=== PATIENT | male | born 1960 | race Caucasian/White ===

== ENCOUNTER 2016-05-24 08:51 | Day surgery (SDC) | payer OTHER ==
[2016-05-24] MEDS ORDERED: ASPIRIN EC 325 MG TAB PO ONE ×2 (08:57→09:12)
[2016-05-24] MEDS ORDERED: FAMOTIDINE 20 MG TAB PO ONE (08:57)
[2016-05-24] MEDS ORDERED: diphenhydrAMINE 25 MG CAP PO ONE ×2 (08:57→09:12)
[2016-05-24] MEDS ORDERED: DIAZEPAM 5 MG TAB PO ONE (08:57)
[2016-05-24] MEDS ORDERED: NS 1,000 ML IV ONE (08:57)
[2016-05-24] MEDS ORDERED: FAMOTIDINE 20 MG TAB ONE (09:12)
[2016-05-24] MEDS ORDERED: DIAZEPAM 5 MG TAB ONE (09:13)
--- NOTE | 2016-05-24 09:15 | CPEKG ---
Heart Rate: 61 RR Interval: 984 P-R Interval: 168 QRSD Interval: 94 QT Interval: 412 QTC Interval: 415 P [place]: 49 QRS [place]: 45 T Wave [place]: 53 EKG Severity - NORMAL ECG - EKG Impression: SINUS RHYTHM Electronically Signed By: Harshil Mckeon 24-May-2016 14:19:59
[2016-05-24] MEDS ORDERED: fentaNYL 100 MCG/2 ML INJ ONE ×2 (09:47→11:08)
[2016-05-24] MEDS ORDERED: LIDOCAINE 1% 30 ML SDV ONE (09:47)
[2016-05-24] MEDS ORDERED: MIDAZOLAM 2 MG/2 ML VIAL ONE ×2 (09:47→11:08)
[2016-05-24] MEDS ORDERED: IOPAMIDOL (ISOVUE-370) 150 ML BTL IV ONE ×2 (09:48→11:06)
[2016-05-24] MEDS ORDERED: VERAPAMIL 5 MG/2 ML VIAL ONE (09:48)
[2016-05-24] MEDS ORDERED: HEPARIN 10,000 UNIT/10 ML MDV ONE (09:48)
[2016-05-24 09:49] LABS: % IMMATURE GRANULYOCYTES 0.3 % (0.0-1.1); ABSOLUTE IMMATURE GRANULOCYTES 0.01 10^3/uL (0.00-0.10); ADD DIFF? NO; ADD MORPH? NO; ADD SCAN? NO; ATYPICAL LYMPHOCYTE FLAG 20 (0-99); FRAGMENT RBC FLAG 0 (0-99); HEMATOCRIT 44.8 % (40.0-51.0); HEMOGLOBIN 15.7 g/dL (13.7-17.5); LEFT SHIFT FLG 0 (0-99); LIPEMIA HEMOLYSIS FLAG 90 (0-99); MEAN CELL HEMOGLOBIN 31.4 pg (27.9-34.1); MEAN CELL VOLUME 89.6 fL (81.5-99.8); MEAN PLATELET VOLUME 9.6 fL (8.7-11.7); PLATELET CLUMPS FLAG 10 (0-99); PLATELET COUNT 192 10^3/uL (150-400); RED CELL DISTRIBUTION WIDTH 12.4 % (11.5-15.2)
[2016-05-24 09:58] LABS: INR 0.99 (0.83-1.16)
[2016-05-24 10:18] LABS: ANION GAP 9 mEq/L (8-16); CALCIUM 9.2 mg/dL (8.5-10.4); CARBON DIOXIDE 23 mEq/l (22-31); CHLORIDE 109 mEq/L (97-110); CHOLESTEROL 117 mg/dL (140-220); CHOLESTEROL/HDL RATIO 2.25 RATIO (1.00-4.97); CREATININE 0.8 mg/dL (0.7-1.3); GLOMERULAR FILTRATION RATE > 60; GLUCOSE 84 mg/dL (70-100); HIGH DENSITY LIPOPROTEIN 52 mg/dL (40-65); LDL/HDL RATIO 0.98 RATIO (1.00-3.64); LOW DENSITY LIPOPROTEIN 51 mg/dL (80-100); MAGNESIUM 1.9 mg/dL (1.6-2.3); NON-HIGH DENSITY LIPOPROTEIN 65 mg/dL (90-129); POTASSIUM 4.6 mEq/L (3.5-5.2); SODIUM 141 mEq/L (134-144); TRIGLYCERIDE 73 mg/dL (40-150); VERY LOW DENSITY LIPOPROTEINS 14 mg/dL (8-25)
--- NOTE | 2016-05-24 11:03 | SUROPNOTE ---
[facility] Operative Report - Surgery Date of Procedure: 05/24/2016 Indication: This patient is a 48 year old man, with known coronary artery disease by calcium score (largely progressive coronary atherosclerosis by calcium score increase from 2010 to 2016), treated hyperlipidemia, and 20 year smoking history. The patient had exertional chest discomfort in 2011, coupled with an abnormal nuclear stress test at that time. He underwent left heart catheterization and coronary angiography in 2011 at [facility], which was normal by his report. He now presents with several weeks of burning chest discomfort with exertion, which has become increasingly frequent. Stress testing demonstrated 2mm of horizontal/upsloping ST depression and non- sustained VT (3 beats and 5 beats) at stress, nuclear perfusion imaging was normal. Left heart catheterization indicated secondary to Greek cardiovascular class III angina and intermediate risk non-invasive testing. Procedures performed: 1. Left heart catheterization with left ventricular and selective coronary angiography. Description of procedure: Description, risks, benefits and alternatives were discussed in detail. Informed consent was obtained. The patient was brought to the catheterization laboratory where a timeout was performed. The right wrist was sterilely prepped and draped. 2% lidocaine utilized for local anesthetic. A 5/6-Botswanan slender hemostatic sheath placed right radial artery utilizing micropuncture technique. Intraarterial verapamil and intravenous heparin was administered. Diagnostic coronary angiography performed with 6-Botswanan, Luisa left-3.5 and Luisa right -4. All catheters passed over a 0.035 guidewire. Pigtail catheter was then utilized for left heart catheterization and left ventricular angiography. A 6- Botswanan multipurpose catheter was utilized for additional coronary angiography and aortography to better assess the presence of the circumflex coronary artery. Arterial sheath was removed and TR band was placed. Venous sheath was removed in the CVC. Findings: 1. Hemodynamics: Aortic pressure 129/79, mean of 103, left ventricular pressure 137/8/22 end-diastolic. There was no significant pull back gradient across the aortic valve. 2. Left ventricle: The left ventricle appears normal in size. Left ventricle is normal shape. Segmental wall motion is normal with an ejection fraction of 63 %. There are no filling defects or significant mitral regurgitation. The aortic root and ascending aorta appears normal, there is no dissection or aneurysm formation. 3. 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 The left main contains up to 25% tubular distal disease. 4. Left anterior descending: This is a moderately large vessel continuing around the apex. There are two moderate diagonal branches, up to 30% proximal- mid calcified disease and 50% ostial first diagonal disease. 5. Circumflex: The circumflex is small and non-dominant. A multipurpose catheter was utilized to be certain that there is no separate ostium of the circumflex from the left or the right coronary sinuses. The circumflex has a moderate high-lateral branch, a small obtuse marginal branch, and small left atrial branch. There are mild calcified luminal irregularities, but no critical lesions 6. Right coronary: Large dominant vessel with a moderately large PDA and a large multibranching extensive posterolateral. There is some mild calcified disease throughout with a 20% proximal-mid stenosis. Overall Impression: 1. Diffuse mild calcified coronary artery disease. 2. Normal left ventricular systolic function, with ejection fraction of 63%. Plan: 1. Continue aggressive risk modification and statin therapy. 2. If the patient's symptoms are felt to be statin related, he theoretically could be considered for PCSK9-inhibitor. Portions of this chart were entered by a scribe. I have reviewed this chart and agree with the documentation. Report scribed for Dr. Kvng Fair. Report scribed by Eli Dean.
== END 2016-05-24 15:10 | disposition home or self-care (01) ==
LOC: FCATH 08:51
PROVIDERS: ATTEND Internal Medicine Interventional Cardiology
PROC: B2151ZZ Fluoroscopy of Left Heart using Low Osmolar Contrast (ICD-10-PCS; principal; 2016-05-24)
PROC: B2111ZZ Fluoroscopy of Multiple Coronary Arteries using Low Osmolar Contrast (ICD-10-PCS; principal; 2016-05-24)
PROC: 4A023N7 Measurement of Cardiac Sampling and Pressure, Left Heart, Percutaneous Approach (ICD-10-PCS; principal; 2016-05-24)
DX: R07.89 Other chest pain (principal); R94.39 Abnormal result of other cardiovascular function study; I25.10 Atherosclerotic heart disease of native coronary artery without angina pectoris; E78.00 Pure hypercholesterolemia, unspecified; Z87.891 Personal history of nicotine dependence
CPT/HCPCS: J1644; J2250; J3010; Q9967

== ENCOUNTER → 2016-09-18 | Outpatient (CLI) | payer OTHER ==
[~2016-09-18] MED LIST: IOPAMIDOL (ISOVUE-300) 100 ML BTL ONE
== END ==
LOC: FIMAGING 07:49
PROVIDERS: ATTEND Internal Medicine
DX: N20.0 Calculus of kidney (principal); N28.1 Cyst of kidney, acquired
CPT/HCPCS: Q9967

== ENCOUNTER → 2016-11-27 | Outpatient (CLI) | payer OTHER | LOC: FIMAGING 06:45 | PROVIDERS: ATTEND Urology | DX: N28.1 Cyst of kidney, acquired (principal) ==

== ENCOUNTER → 2017-01-26 | Outpatient (CLI) | payer OTHER | LOC: FIMAGING 10:28 | PROVIDERS: ATTEND Urology | DX: N20.0 Calculus of kidney (principal) ==

== ENCOUNTER 2017-02-09 11:51 | Observation (INO) | payer OTHER ==
[~2017-02-09 11:51] MED LIST changes: +GENTAMICIN SULFATE 120 MG in D5W 100 ML IV ONE; -IOPAMIDOL (ISOVUE-300) 100 ML BTL ONE
--- NOTE | 2017-02-09 12:52 | PDHPUP ---
History & Physical Update H&P update statement: This history and physical update is based on an assessment of the patient which was completed after admission or registration (within 24 hours), but prior to the surgery/procedure. H&P update: H&P reviewed & patient examined, no change in patient's condition since H&P completed
[2017-02-09] MEDS ORDERED: ceFAZolin 2 GM/DEXTROSE 100 ML IV ONE (13:13)
[2017-02-09] MEDS ORDERED: LIDOCAINE 1% 2 ML INJ ID PRN (13:13)
[2017-02-09] MEDS ORDERED: LR 1,000 ML IV ONE (13:13)
[2017-02-09] MEDS ORDERED: MIDAZOLAM 2 MG/2 ML VIAL IVP ONE ×2 (14:22→14:30)
[2017-02-09] MEDS ORDERED: IOPAMIDOL (ISOVUE-M 300) 15 ML VIAL ONE (14:27)
[2017-02-09] MEDS ORDERED: BUPIVACAINE 0.25% 30 ML SDV ONE (14:27)
[2017-02-09] MEDS ORDERED: fentaNYL 100 MCG/2 ML INJ ONE ×3 (14:34→17:05)
[2017-02-09] MEDS ORDERED: PROPOFOL 200 MG/20 ML VIAL ONE (14:34)
[2017-02-09] MEDS ORDERED: ROCURONIUM 50 MG/5 ML VIAL ONE (14:35)
[2017-02-09] MEDS ORDERED: DEXAMETHASONE 4 MG/ML VIAL ONE (14:35)
[2017-02-09] MEDS ORDERED: LIDOCAINE 2% 5 ML SDV ONE ×2 (14:41)
[2017-02-09] MEDS ORDERED: PHENYLEPHRINE HCL 100 MCG/ML SYR ONE (14:42)
[2017-02-09] MEDS ORDERED: MEPERIDINE 25 MG/ML SYR IVP PRN (15:32)
[2017-02-09] MEDS ORDERED: OXYCODONE/APAP 5/325 TAB PO PRN (15:32)
[2017-02-09] MEDS ORDERED: HYDROCODONE/APAP 5/325 TAB PO PRN (15:32)
[2017-02-09] MEDS ORDERED: IOPAMIDOL (ISOVUE-300) 150 ML BTL ONE (15:32)
[2017-02-09] MEDS ORDERED: LR 500 ML IV PRN (15:32)
[2017-02-09] MEDS ORDERED: NALOXONE HCL 0.4 MG/ML INJ IVP PRN (15:32)
[2017-02-09] MEDS ORDERED: HYDROmorphONE/DILAUDID 1 MG/ML INJ IVP PRN (15:32)
[2017-02-09] MEDS ORDERED: ONDANSETRON 4 MG/2 ML VIAL IVP PRN ×2 (15:32→16:35)
[2017-02-09] MEDS ORDERED: PROMETHAZINE HCL 25 MG/ML INJ IVP PRN (15:32)
[2017-02-09] MEDS ORDERED: fentaNYL 100 MCG/2 ML INJ IVP PRN (15:32)
[2017-02-09] MEDS ORDERED: ACETAMINOPHEN 500 MG TAB PO PRN (15:32)
[2017-02-09] MEDS ORDERED: FUROSEMIDE 20 MG/2 ML VIAL ONE ×2 (16:06→16:21)
--- NOTE | 2017-02-09 16:30 | POSTOPPROG ---
Post Op Note Date of Operation: 02/09/17 Surgeon: Zay Proctor Anesthesia: GET(General Endotracheal) Pre-op Diagnosis: Right renal calculus Post-op Diagnosis: same Findings: 8x10 mm impacted UPJ stone Inf/Abcess present in the surg proc area at time of surgery?: No EBL: 50-100
[2017-02-09] MEDS ORDERED: ZOLPIDEM TARTRATE 5 MG TAB PO PRN (16:35)
[2017-02-09] MEDS ORDERED: HYDROmorphONE/DILAUDID 6 MG/30 ML PCA IV PRN (16:35)
[2017-02-09] MEDS ORDERED: D5W 1/2 NS 1,000 ML IV SCH (16:45)
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
--- NOTE | 2017-02-09 17:02 | POSTANESTH ---
Post Anesthetic Evaluation Cardiovascular Status: Normal, Stable Respiratory Status: Normal, Stable Level of Consciousness/Mental Status: Can Participate in Eval Pain Control: Adequate, Prn Tx Ordered Nausea/Vomiting Control: Adequate, Prn Tx Ordered Complications Possibly Related to Anesthesia: None Noted
[2017-02-09] MEDS: KETOROLAC 15 MG/1 ML SDV IVP SCH ×2 (19:22→23:59)
--- NOTE | 2017-02-09 19:37 | GOP ---
[f rep st] OPERATIVE REPORT DATE OF OPERATION: 02/09/2017 SURGEON: Zay Proctor MD PREOPERATIVE DIAGNOSIS: Right nephrolithiasis. POSTOPERATIVE DIAGNOSIS: Right nephrolithiasis. PROCEDURE PERFORMED: 1. Cystoscopy with right retrograde pyelography. 2. Insertion of needle guide into right renal pelvis for percutaneous access. 3. Right percutaneous nephrostolithotomy. FINDINGS: SPECIMENS: Right renal stone. ESTIMATED BLOOD LOSS: 100 mL. INDICATIONS: The patient is a 56-year-old male who has a 10 x 8 mm right UPJ stone. Attempts to acc ess it from a retrograde fashion were unsuccessful due to a narrow ureter. Other options were discus sed. He would like to undergo percutaneous removal. DESCRIPTION OF PROCEDURE: After informed consent and general endotracheal anesthesia, the patient wa s placed initially supine with his genitalia sterilely prepped and draped. Flexible cystoscopy was p erformed and a 5-Maldivian ureteral catheter passed into the right proximal ureter just below the stone. This was secured alongside the [place] catheter. The patient was repositioned in the modified prone position. All pressure points were carefully padd ed and he was secured to the table with tape. His flank was then sterilely prepped and draped. A 19-gauge TLA needle was used to puncture a posterior lower calyx. Guidance safety wires were curle d in the renal pelvis and the track was dilated with a balloon to 30 points. A 34-Maldivian working she ath was inserted. The rigid nephroscope was inserted and the impacted stone was noted. It was tease d out of the UPJ intact and removed whole. Flexible nephroscopy revealed no residual fragments. The remaining collecting system was examined. A 12-Maldivian nephrostomy tube was then positioned in the r enal pelvis. It was secured to the skin with nylon. A dry dressing was applied. 10 mL of 0.5% Vic lavon was injected as an intercostal nerve block. The patient was awakened, transferred to recovery in stable condition. There were no intraoperative complications. /[id number]/MODL
[2017-02-09] MEDS: oxyCODONE IR 5 MG TAB PO PRN (19:49)
[2017-02-09] MEDS: ACETAMINOPHEN 325 MG TAB PO PRN (23:59)
[2017-02-10] MEDS: KETOROLAC 15 MG/1 ML SDV IVP SCH ×2 (05:55→11:47)
[2017-02-10] MEDS: ACETAMINOPHEN 325 MG TAB PO PRN (07:07)
--- NOTE | 2017-02-10 07:08 | SOAPPROG ---
SOAP Progress Note Assessment/Plan: Assessment: Right renal calculus s/p PCNL Plan: Neph tube was removed. If patient does well, he will be discharged later today. 02/10/17 07:06 Subjective: Pt feels well except for soreness at neph tube site. No nausea. Objective: Vital Signs Temp Pulse Resp BP Pulse Ox 36.6 C 68 16 125/66 H 94 02/10/17 03:05 02/10/17 03:05 02/10/17 03:05 02/10/17 03:05 02/10/17 03:05 02/09/17 02/10/17 02/11/17 05:59 05:59 05:59 Intake Total 2715 Output Total 3000 Balance -285 Physical Exam - Physical Exam General Appearance: WD/WN, alert, no apparent distress Abdomen: non-tender, soft Back: Other (neph tube site clean after removal of tube.) ICD10 Worksheet Patient Problems: Problems Problem Status Onset Concussion with less than 1 hour loss of consciousness Active
[2017-02-10] MEDS: oxyCODONE IR 5 MG TAB PO PRN ×3 (07:33→12:31)
[2017-02-10] MEDS ORDERED: ROSUVASTATIN CALCIUM 20 MG TAB PO SCH (09:00)
[2017-02-10] MEDS ORDERED: ALPRAZolam 0.25 MG TAB PO PRN (09:41)
[2017-02-10] MEDS ORDERED: HYDROmorphONE/DILAUDID 1 MG/ML INJ IVP PRN (09:47)
[2017-02-10 12:24] VITALS: BP 127/71; PULSE 71; RESP 20; TEMP 98.2; O2SAT 91
--- NOTE | 2017-02-10 17:03 | ASDISCHSUM ---
Discharge Information Plan Status:Home with No Needs Medically Cleared to Leave: Discharge Date:02/10/2017 02:42 PM CM D/C Disposition:Home, Routine, Self-Care ADT D/C Disposition:Home, Routine, Self-Care Projected Discharge Date:02/10/2017 02:42 PM Transportation at D/C: Discharge Delay Reason: Follow-Up Date:02/10/2017 02:42 PM Discharge Slot: Final Diagnosis: Placement Information Patient Contact Information Contact Name:ZEV Relationship: Address:[address] Work Phone: [facility] Phone: [facility]/Zip Code:[place] [address] Email: Financial Information Financial Class:[employer] Primary Plan Desc:[employer] HMO OPEN ACC LOCAL Primary Plan Number:[id number] Secondary Plan Desc: Secondary Plan Number: Assessment Information Intervention Information
== END 2017-02-10 14:42 | disposition home or self-care (01) ==
LOC: F1N 12:45 → F3E 17:49
PROVIDERS: ADMIT Urology; ATTEND Urology
PROC: 0TC08ZZ Extirpation of Matter from Right Kidney, Via Natural or Artificial Opening Endoscopic (ICD-10-PCS; principal; 2017-02-09 14:15)
DX: N20.0 Calculus of kidney (principal)
CPT/HCPCS: 52352; 76001; C1726; C1729; C1769; C1894; G0378; J0690; J1100; J1170; J1885; J1940; J2250; J2370; J2704; J3010; Q9967